=== PATIENT | male | born 1950 | race Caucasian/White ===

== ENCOUNTER 2019-09-17 07:29 | Emergency (ER) | payer BC, OTHER | END 2019-09-17 08:33 | disposition home or self-care (01) | LOC: ERS 07:29 | DX: R04.0 Epistaxis (principal); I48.91 Unspecified atrial fibrillation; M10.9 Gout, unspecified; E11.9 Type 2 diabetes mellitus without complications; Z87.891 Personal history of nicotine dependence; Z79.899 Other long term (current) drug therapy | CPT/HCPCS: 99283 ==